=== PATIENT | male | born 1970 | race Two or more races ===

== ENCOUNTER 2020-04-06 21:51 | Emergency (ER) | payer OTHER ==
[~2020-04-06] VITALS: Ht 188 cm; Wt 113.4 kg
[~2020-04-06 21:51] MED LIST: ASPI81TA31 PO
[2020-04-06] MEDS ORDERED: CEFTRIAXONE 1 G VIAL IM ONE (22:15)
[2020-04-06] MEDS ORDERED: CEFTRIAXONE 1 G VIAL ONE (22:16)
[2020-04-06] MEDS ORDERED: SULF1TAB48 PO (22:23)
== END 2020-04-06 22:43 | disposition home or self-care (01) ==
LOC: ER 21:55
DX: I87.2 Venous insufficiency (chronic) (peripheral) (principal); L97.819 Non-pressure chronic ulcer of other part of right lower leg with unspecified severity; Z59.0 Homelessness; J44.9 Chronic obstructive pulmonary disease, unspecified; Z86.73 Personal history of transient ischemic attack (TIA), and cerebral infarction without residual deficits; I25.2 Old myocardial infarction; Z95.5 Presence of coronary angioplasty implant and graft; I50.9 Heart failure, unspecified
CPT/HCPCS: 96372; 99283; J0696; A4663

== ENCOUNTER 2020-07-27 21:18 | Emergency (ER) | payer OTHER ==
[~2020-07-27] VITALS: Ht 188 cm; Wt 112.0 kg
[~2020-07-27 21:18] MED LIST changes: +SULF1TAB48 PO
--- NOTE | 2020-07-27 22:10 | NUR ---
DR Leon into eval patient.
[2020-07-27] MEDS ORDERED: SULF1TAB48 PO (22:28)
[2020-07-27] MEDS ORDERED: SULFAMETH/TRIMETH 800/160 MG TABLET PO ONE (22:30)
[2020-07-27] MEDS ORDERED: SULFAMETH/TRIMETH 800/160 MG TABLET ONE (22:38)
--- NOTE | 2020-07-27 22:38 | NUR ---
Patient discharged to home in stable condition. Written and verbal after care instructions given. Patient verbalizes understanding of instructions. Stressed follow up or return to ER for worsening s/s.
[2020-07-27 22:41] VITALS: BP 148/95
== END 2020-07-27 22:41 | disposition home or self-care (01) ==
LOC: ER 21:20
DX: L97.811 Non-pressure chronic ulcer of other part of right lower leg limited to breakdown of skin (principal); I87.2 Venous insufficiency (chronic) (peripheral); I25.2 Old myocardial infarction; Z86.73 Personal history of transient ischemic attack (TIA), and cerebral infarction without residual deficits; J44.9 Chronic obstructive pulmonary disease, unspecified; Z95.5 Presence of coronary angioplasty implant and graft; Z59.0 Homelessness; Z79.82 Long term (current) use of aspirin; M21.951 Unspecified acquired deformity of right thigh
CPT/HCPCS: A4663

== ENCOUNTER 2020-09-25 20:35 | Inpatient (IN) | payer MEDICAID, OTHER ==
[~2020-09-25] VITALS: Ht 188 cm; Wt 104.4 kg
--- NOTE | 2020-09-25 20:45 | NUR ---
PT AMBULATED TO ER W/ C/O RIGHT ANKLE WOUND THAT HASN'T BEEN BETTING BETTER PL:11/16. A/O X3, NO SOB OR LABORED BREATHING, AFEBRILE.
--- NOTE | 2020-09-25 21:00 | NUR ---
DR. GARCIA AT BEDSIDE, MSE IN PROGRESS.
--- NOTE | 2020-09-25 21:38 | NUR ---
XRAY AT BEDSIDE.
[2020-09-25] MEDS ORDERED: PIPERACILLIN SODIUM/TAZOBACTAM 3.375 G in IV DEXTROSE 5% 50 ML IV ONE (22:45)
[2020-09-25] MEDS ORDERED: VANCOMYCIN IV 1,000 MG in IV DEXTROSE 5% 250 ML IV ONE (22:45)
[2020-09-25 23:01] LABS: MEAN CORPUSCULAR HEMOGLOBIN 28.7 uug (23.8-33.4); MEAN CORPUSCULAR VOLUME 85.2 fL (73.0-96.2); PLATELET COUNT (AUTO) 250 K/uL (152-348)
[2020-09-25 23:03] LABS: CREATININE 1.5 mg/dL (0.6-1.3); POTASSIUM 3.6 mmol/L (3.5-5.1)
[2020-09-25] MEDS ORDERED: VANCOMYCIN IV 200 ML ONE (23:07)
[2020-09-25] MEDS ORDERED: PIPERACILLIN/TAZOBACTAM/D5W 50 ML IV ONE (23:07)
[2020-09-25 23:09] LABS: BILIRUBIN,DIRECT 0.1 mg/dL (0.0-0.2); BILIRUBIN,TOTAL 0.2 mg/dL (0.2-1.0); TOTAL PROTEIN, SERUM 7.6 g/dL (6.4-8.2)
--- NOTE | 2020-09-25 23:21 | NUR ---
EPIC called, pending call back from CLEMENCIA Thibodeaux.
[2020-09-26] MEDS ORDERED: LABETALOL HCL 100 MG/20 ML VIAL IV PRN
[2020-09-26] MEDS ORDERED: hydrALAZINE HCL 20 MG/1 ML VIAL IV PRN
[2020-09-26] MEDS ORDERED: MAGNESIUM HYDROXIDE 30 ML LIQUID UDC PO PRN
[2020-09-26] MEDS ORDERED: ONDANSETRON 4 MG/2 ML VIAL IV PRN
[2020-09-26] MEDS ORDERED: HYDROCODONE/APAP 5-325MG TABLET PO PRN
--- NOTE | 2020-09-26 00:31 | NUR ---
GAVE REPORT TO ANNALISA PALMA.
--- NOTE | 2020-09-26 01:15 | NUR ---
Pt. admitted to [facility] , under care of DR. IGLESIAS DX: RIGHT LOWER LEG OSTEOMYLITIS Belongs List completed
[2020-09-26 02:26] VITALS: BP 125/82
[2020-09-26] MEDS ORDERED: CEFEPIME HCL 1 G VIAL ONE (02:55)
[2020-09-26 04:00] VITALS: BP 130/73
[2020-09-26] MEDS ORDERED: CEFEPIME HCL 1 G in IV DEXTROSE 5% 50 ML IV SCH (06:00)
[2020-09-26] MEDS ORDERED: CEFEPIME HCL 1 G in IV DEXTROSE 5% 50 ML IV ONE (06:00)
--- NOTE | 2020-09-26 07:08 | NUR ---
Pt arrived to unit from ER in stable condition brain wheelchair as a Med Surg patient. C/o pain in right lower leg, given [place] which helped patient's pain subside. Denies SOB at this time. Patient is alert and able to make needs known. IV site intact. No other issues or concerns at this time, will endorse to day shift.
--- NOTE | 2020-09-26 07:30 | NUR ---
Patient received in bed with eyes closed, but easily arousable. Right LE dressing C/D/I. Patient on RA with no SOB or difficulties breathing. No acute distress noted at this time. Left AC IV is patent with no redness or swelling noted at this time. No c/o pain or discomforts. Call light within easy reach. Will continue to monitor.
[2020-09-26] MEDS ORDERED: VANCOMYCIN IV 1,000 MG in IV DEXTROSE 5% 250 ML IV SCH (09:00)
--- NOTE | 2020-09-26 09:01 | NUR ---
WOUND CARE CONSULT: PT PRESENTS WITH RT ANKLE WOUND, PRESENT ON ADMISSION. RECOMMEND DPM CONSULT. DR FLYNN NOTIFIED. IN AGREEMENT WITH PLAN OF CARE. Addendum: 09/26/20 at 0902 by ANUM SAUNDERS RN Amended: Links added.
[2020-09-26] MEDS: ASPIRIN 81 MG TAB.CHEW PO SCH (09:16)
[2020-09-26] MEDS: HEPARIN SODIUM,PORCINE 5,000 UNITS/ML VIAL SQ SCH ×2 (09:16→21:16)
[2020-09-26] MEDS: VANCOMYCIN IV 1,500 MG in IV DEXTROSE 5% 500 ML IV SCH ×2 (09:16→21:17)
--- NOTE | 2020-09-26 11:00 | NUR ---
Patient c/o pain at IV site. Failed multiple attempts to start new IV site and new order for midline at this time.
[2020-09-26 11:07] VITALS: BP 118/72
--- NOTE | 2020-09-26 14:15 | NUR ---
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
[2020-09-26 15:54] VITALS: BP 101/47
[2020-09-26 20:22] VITALS: BP 115/67
--- NOTE | 2020-09-26 20:39 | NUR ---
PICC liner here for Mid Line insertion.
--- NOTE | 2020-09-26 20:57 | NUR ---
Mid Line insertion dine. Patient tolerated procedure well.
[2020-09-26] MEDS: MORPHINE SULFATE 2 MG/1 ML DISP.SYRIN IV PRN (21:20)
[2020-09-27] MEDS: CEFEPIME HCL 2 G in IV DEXTROSE 5% 100 ML IV SCH ×4 (01:51→13:40)
[2020-09-27 04:46] VITALS: BP 140/84
[2020-09-27 06:59] LABS: BILIRUBIN,TOTAL 0.4 mg/dL (0.2-1.0); CREATININE 1.1 mg/dL (0.6-1.3); MAGNESIUM 2.1 mg/dL (1.8-2.4); PHOSPHOROUS 2.5 mg/dL (2.5-4.9); POTASSIUM 4.2 mmol/L (3.5-5.1); TOTAL PROTEIN, SERUM 7.4 g/dL (6.4-8.2)
[2020-09-27 07:03] LABS: HEMATOCRIT 42.8 % (36.7-47.1); MEAN CORPUSCULAR HEMOGLOBIN 28.4 uug (23.8-33.4); MEAN CORPUSCULAR VOLUME 85.9 fL (73.0-96.2); PLATELET COUNT (AUTO) 267 K/uL (152-348)
--- NOTE | 2020-09-27 07:30 | NUR ---
Patient received in bed with eyes closed, but easily arousable. Right LE dressing C/D/I. Patient on RA with no SOB or difficulties breathing. No acute distress noted at this time. Right AC midline is patent with no redness or swelling noted at this time. No c/o pain or discomforts. Call light within easy reach. Will continue to monitor.
--- NOTE | 2020-09-27 08:30 | NUR ---
Patient reminded that we need a urine sample. Specimen cup at bedside. Patient expresses understanding.
[2020-09-27] MEDS: HEPARIN SODIUM,PORCINE 5,000 UNITS/ML VIAL SQ SCH ×2 (08:32→20:41)
[2020-09-27] MEDS: ASPIRIN 81 MG TAB.CHEW PO SCH (08:33)
[2020-09-27] MEDS: VANCOMYCIN IV 1,500 MG in IV DEXTROSE 5% 500 ML IV SCH ×2 (09:29→20:44)
--- NOTE | 2020-09-27 10:37 | NUR ---
Patient transferred to telemetry from M/S. Patient requests to have ECHO done tomorrow because he "didn't have good sleep" last night. Diet changed to cardiac. Dr. Ruffin and Dr. Corbett aware.
[2020-09-27 12:00] VITALS: BP 166/91
[2020-09-27] MEDS: METOPROLOL SUCCINATE XL 25 MG TAB.SR.24H PO SCH (12:05)
[2020-09-27 16:00] VITALS: BP 121/69
--- NOTE | 2020-09-27 16:00 | NUR ---
Patient again reminded of needing urine sample. Patient expresses understanding.
--- NOTE | 2020-09-27 19:30 | NUR ---
Received pt in bed, awake and verbally responsive, able to make needs known. No signs of acute distress. IV access intact and patent. Reminded pt for a urine sample. Safety measures initiated, call light within reach.
[2020-09-27] MEDS: MORPHINE SULFATE 2 MG/1 ML DISP.SYRIN IV PRN (19:46)
[2020-09-27 20:00] VITALS: BP 133/84
[2020-09-27] MEDS: ATORVASTATIN 40 MG TABLET PO SCH (20:36)
[2020-09-27] MEDS: ACETAMINOPHEN 325 MG TABLET PO PRN (20:36)
[2020-09-28] VITALS: BP 120/67
[2020-09-28] MEDS: CEFEPIME HCL 2 G in IV DEXTROSE 5% 100 ML IV SCH ×2 (01:48→13:20)
[2020-09-28 04:00] VITALS: BP 130/71
--- NOTE | 2020-09-28 07:00 | NUR ---
Slept through the night, no signs of acute distress. Tolerated medications well. NSR on tele. No significant change in condition noted. Safety measures maintained at all times. All needs attended to and met. Urine sample sent to lab.
[2020-09-28 07:23] LABS: *BILIRUBIN,URIN NEGATIVE (NEGATIVE); *BLOOD, URINE 2+ (NEGATIVE); *CLARITY,URINE CLOUDY (CLEAR); *COLOR,URINE YELLOW (YELLOW); *KETONES,URINE NEGATIVE (NEGATIVE); *UROBILINOGEN,URINE 0.2 E.U./dl (NORMAL); LEUKOCYTE ESTERASE ,URINE 2+ (NEGATIVE); NITRITE, URINE NEGATIVE (NEGATIVE); UGLUCOSE NEGATIVE (NEGATIVE)
[2020-09-28 07:48] LABS: RBC,URINE 50-80 /HPF (0-3); WBC,URINE 80-100 /HPF (0-3)
[2020-09-28 07:49] LABS: BACTERIA,URINE NONE SEEN /HPF (NONE SEEN)
[2020-09-28 07:50] LABS: SQUAMOUS EPITHELIAL CELL,UR NONE SEEN /HPF (NONE SEEN)
[2020-09-28] MEDS: ASPIRIN 81 MG TAB.CHEW PO SCH (08:31)
[2020-09-28] MEDS: HEPARIN SODIUM,PORCINE 5,000 UNITS/ML VIAL SQ SCH ×2 (08:34→20:25)
[2020-09-28] MEDS: METOPROLOL SUCCINATE XL 25 MG TAB.SR.24H PO SCH (08:38)
[2020-09-28] MEDS: MORPHINE SULFATE 2 MG/1 ML DISP.SYRIN IV PRN ×2 (08:41→21:37)
[2020-09-28] MEDS: VANCOMYCIN IV 1,500 MG in IV DEXTROSE 5% 500 ML IV SCH (10:37)
[2020-09-28 12:00] VITALS: BP 114/58
[2020-09-28 16:00] VITALS: BP 123/79
--- NOTE | 2020-09-28 18:46 | NUR ---
Received patient in bed, alert and oriented x 4, patient in room air saturating at 96% call light placed within reach, all needs met promptly. Left AC IV site intact. All due meds given per MD order. Seen by Dr. Corbett. Transferred patient from telemetry to [facility]. Instructed patient to give urine sample when ready. Right ankle dressing changed.
--- NOTE | 2020-09-28 19:30 | NUR ---
Received pt in bed, awake, A&Ox3 and verbally responsive. No signs of respiratory distress noted. IV access intact and patent. R ankle with dressing, no signs of soilage. Reminded pt to collect another urine sample as he is ambulatory to the bathroom. Safety measures initiated, call light within reach.
[2020-09-28 20:15] VITALS: BP 120/81
[2020-09-28] MEDS: ACETAMINOPHEN 325 MG TABLET PO PRN (20:21)
[2020-09-28] MEDS: ATORVASTATIN 40 MG TABLET PO SCH (20:22)
[2020-09-29] MEDS: VANCOMYCIN IV 1,500 MG in IV DEXTROSE 5% 500 ML IV SCH (00:01)
[2020-09-29] MEDS: CEFEPIME HCL 2 G in IV DEXTROSE 5% 100 ML IV SCH (02:29)
[2020-09-29 04:15] VITALS: BP 123/52
--- NOTE | 2020-09-29 06:33 | NUR ---
Slept through the night, no signs of distress. Pain medication administered as needed, tolerated medications well. No significant change in condition noted. Safety measures maintained at all times. all needs attended to and met.
[2020-09-29 08:51] LABS: *AMPHETAMINE, URINE POSITIVE (NEGATIVE); *CANNABINOID, URINE NEGATIVE (NEGATIVE); *COCCAINE, URINE NEGATIVE (NEGATIVE); *OPIATE, URINE POSITIVE (NEGATIVE); *PHENCYCLIDINE SCREEN,URINE NEGATIVE (NEGATIVE)
[2020-09-29] MEDS ORDERED: ENSURE ENLIVE (VAN) 240 ML LIQUID PO SCH (09:00)
[2020-09-29] MEDS: ASPIRIN 81 MG TAB.CHEW PO SCH (09:06)
[2020-09-29] MEDS: HEPARIN SODIUM,PORCINE 5,000 UNITS/ML VIAL SQ SCH (09:07)
[2020-09-29] MEDS: METOPROLOL SUCCINATE XL 25 MG TAB.SR.24H PO SCH (09:07)
[2020-09-29] MEDS ORDERED: NALOXONE HCL 0.4 MG/ML AMPUL IV PRN (09:45)
[2020-09-29] MEDS ORDERED: OXYCODONE HCL 10 MG TAB.SR.12H PO SCH (09:45)
--- NOTE | 2020-09-29 11:27 | NUR ---
PATIENT SEEN AND EXAMINED BY DR ALLEN ROBERTS CHAPEL PROVIDER WITH NEW ORDERS AND NOTED.
[2020-09-29 11:29] VITALS: BP 113/61
--- NOTE | 2020-09-29 12:30 | NUR ---
PATIENT STATED WANTS TO BE DISCHARGED BECAUSE UNABLE TO REACH HIS ZACHERY ABOUT 3 DAYS STATED HER NAME IS MARTHA NASH [phone] THIS PERSON IS NOT ON HIS CONTACT LIST I ALSO TRIED TO CALL THIS PERSON 3 TIMES AND IT WENT INTO VOICE MAIL ENCOURAGED PATIENT TO CALL HIS JD EDWARDS OR THE POLICE TO GO AND CHECK UP ON HER BUT HE INSISTED THAT HE MUST LEAVE CALLED AND NOTIFIED DR ALLEN AND HE STATED PATIENT CAN GO AGAINST [facility] BECAUSE HE IS NOT MEDICALLY CLEAR TO BE DISCHARGED SO PATIENT STATED WILL SIGN AGAINST [facility] BECAUSE HE MUST LEAVE
--- NOTE | 2020-09-29 12:55 | NUR ---
PATIENT AT THE NURSES STATED ANGRY SHOUTING THAT HE MUST LEAVE TOLD HIM TO GIVE ME A CHANCE TO TAKE THE PICTURES OF HIS RIGHT ANKLE REMOVE HIS MIDLINE AND PREPARE HIS PAPERS.STATED UNABLE TO WAIT.
--- NOTE | 2020-09-29 13:00 | NUR ---
STACY FRIEDMAN REMOVED REUSED PICTURES AND OTHER PAPER WORK BUT WAS ABLE TO GIVE HIM HIS MONEY FROM THE [facility]AFE AND ESCORTED HIM DOWN STAIRS STATED THAT HIS CAR IS IN THE PARKING LOT.DRESSING ON HIS RIGHT LEG IS INTACT AT THIS TIME
== END 2020-09-29 13:00 | disposition left against medical advice (07) | DRG 349 ==
LOC: ER 20:36 → MEDSURG3 23:55 → TELE3 09-27 10:28 → MEDSURG3 09-28 15:15
PROVIDERS: ADMIT Internal Medicine; ATTEND Internal Medicine
PROC: B546ZZA Ultrasonography of Right Subclavian Vein, Guidance (ICD-10-PCS; principal; 2020-09-26)
PROC: 05H533Z Insertion of Infusion Device into Right Subclavian Vein, Percutaneous Approach (ICD-10-PCS; principal; 2020-09-26)
DX: T84.59XA Infection and inflammatory reaction due to other internal joint prosthesis, initial encounter (principal); N17.0 Acute kidney failure with tubular necrosis; I21.A1 Myocardial infarction type 2; A41.9 Sepsis, unspecified organism; I13.0 Hypertensive heart and chronic kidney disease with heart failure and stage 1 through stage 4 chronic kidney disease, or unspecified chronic kidney disease; I50.9 Heart failure, unspecified; L02.415 Cutaneous abscess of right lower limb; I87.311 Chronic venous hypertension (idiopathic) with ulcer of right lower extremity; L97.919 Non-pressure chronic ulcer of unspecified part of right lower leg with unspecified severity; L03.115 Cellulitis of right lower limb; J44.9 Chronic obstructive pulmonary disease, unspecified; I25.5 Ischemic cardiomyopathy; L97.519 Non-pressure chronic ulcer of other part of right foot with unspecified severity; L97.319 Non-pressure chronic ulcer of right ankle with unspecified severity; N18.9 Chronic kidney disease, unspecified; F17.210 Nicotine dependence, cigarettes, uncomplicated; Z86.73 Personal history of transient ischemic attack (TIA), and cerebral infarction without residual deficits; I25.10 Atherosclerotic heart disease of native coronary artery without angina pectoris; Z79.82 Long term (current) use of aspirin; Z95.5 Presence of coronary angioplasty implant and graft; L97.818 Non-pressure chronic ulcer of other part of right lower leg with other specified severity; E78.5 Hyperlipidemia, unspecified; F15.10 Other stimulant abuse, uncomplicated; M86.8X7 Other osteomyelitis, ankle and foot; I25.2 Old myocardial infarction; Y92.89 Other specified places as the place of occurrence of the external cause; T84.84XA Pain due to internal orthopedic prosthetic devices, implants and grafts, initial encounter; Y83.1 Surgical operation with implant of artificial internal device as the cause of abnormal reaction of the patient, or of later complication, without mention of misadventure at the time of the procedure; Z20.822 Contact with and (suspected) exposure to COVID-19
CPT/HCPCS: 36415; 70030-TC; 71045; 73590; 73620; 73721; 83605; 83735; 84100; 85025; 85651; 85730; 86140; 87040; 87070; 87077; 87086; 93005; A4663; G0378; J0692; J1644; J2270; J2543; J3370; J7040; J7060

== ENCOUNTER 2020-10-31 20:03 | Emergency (ER) | payer MEDICAID ==
--- NOTE | 2020-10-31 21:56 | NUR ---
Pt not in waiting room.
== END 2020-10-31 21:57 | disposition left against medical advice (07) ==
LOC: ER 20:03
DX: Z53.21 Procedure and treatment not carried out due to patient leaving prior to being seen by health care provider (principal)

== ENCOUNTER 2020-11-02 17:42 | Inpatient (IN) | payer MEDICAID ==
[~2020-11-02] VITALS: Ht 188 cm; Wt 103.9 kg
[2020-11-02] MEDS ORDERED: CEFTRIAXONE 1 G in IV DEXTROSE 5% 50 ML IV ONE (18:00)
[2020-11-02] MEDS ORDERED: AZITHROMYCIN IV 500 MG in IV DEXTROSE 5% 250 ML IV ONE (18:00)
--- NOTE | 2020-11-02 18:06 | NUR ---
MD at bedside for assessment, 4 liters nasal cannula applied to patient, saturating 90% on room air, saturating 96% with supplemental O2
[2020-11-02] MEDS ORDERED: CEFTRIAXONE /D5W 50ML IVPB **ER PYXIS IV ONE (18:23)
[2020-11-02] MEDS ORDERED: AZITHROMYCIN 500MG/ D5W 250ML IVPB **ER PYXIS ONLY IV ONE (18:23)
[2020-11-02 18:30] LABS: ABG BASE EXCESS 0.1 mmol/L; ABG HCO3 22.5 mmol/L; ABG PH 7.479 (7.350-7.450); ABG PO2 91.5 mmHg (75.0-100.0); ABG SITE RIGHT RADIAL; ABG TOTAL HEMOGLOBIN 15.7 G/dL (13.5-18.0); COHb 0.6 % (0.5-1.5); MetHb 0.2 % (0.0-1.5); O2Hb 96.8 % (94.0-97.0); VENT MODE Nasal Cannula
[2020-11-02] MEDS ORDERED: IPRATROPIUM BROMIDE 12.9 GM INHALER INH ONE (18:30)
[2020-11-02] MEDS ORDERED: ALBUTEROL SULFATE 8 GM HFA.AER.AD IH ONE ×2 (18:30→18:45)
[2020-11-02 19:06] LABS: HEMATOCRIT 46.9 % (36.7-47.1); MEAN CORPUSCULAR HEMOGLOBIN 28.7 uug (23.8-33.4); MEAN CORPUSCULAR VOLUME 85.3 fL (73.0-96.2); PLATELET COUNT (AUTO) 153 K/uL (152-348)
[2020-11-02 19:12] LABS: CREATININE 1.8 mg/dL (0.6-1.3); POTASSIUM 4.7 mmol/L (3.5-5.1)
[2020-11-02 19:29] LABS: BILIRUBIN,TOTAL 0.3 mg/dL (0.2-1.0); TOTAL PROTEIN, SERUM 8.4 g/dL (6.4-8.2)
--- NOTE | 2020-11-02 19:30 | NUR ---
Recieved report from ANNALISA Ballesteros. Pt. is resting in bed, tolerating 4L nc. Spo2>97%.
[2020-11-02] MEDS ORDERED: ACETAMINOPHEN ES 500 MG TABLET ONE (20:41)
[2020-11-02] MEDS ORDERED: ACETAMINOPHEN ES 500 MG TABLET PO STA (21:00)
--- NOTE | 2020-11-02 21:10 | NUR ---
Gave pt blanket, juice, sandwich. Pt. resting. NAD. Will continue to monitor.
--- NOTE | 2020-11-02 21:12 | NUR ---
[facility] paged for pt. admission.
[2020-11-02] MEDS ORDERED: DEXAMETHASONE SOD PHOSPHATE 4 MG INJ IV ONE (21:15)
--- NOTE | 2020-11-02 21:25 | NUR ---
Dr. Srivastava on panel call with Oswaldo Ferrari CHAIR CAR DRIVER. Patient accepted for admission to [facility], diagnosis: covid+ pneumonia.
[2020-11-02] MEDS ORDERED: DEXAMETHASONE SOD PHOSPHATE 4 MG INJ ONE (21:27)
[2020-11-02] MEDS ORDERED: ENOXAPARIN SODIUM 100 MG/ML DISP.SYRIN SQ ONE ×2 (21:30→21:31)
--- NOTE | 2020-11-02 21:30 | NUR ---
Dr. Srivastava spoke w/ Oswaldo Ferrari. Pt. will be admitted to tele. Pt. to go to room 320.
[2020-11-02] MEDS ORDERED: ENOXAPARIN SODIUM 30 MG/0.3 ML DISP.SYRIN ONE (21:31)
--- NOTE | 2020-11-02 21:49 | NUR ---
Gave report to ANNALISA Bennett.
[2020-11-02] MEDS ORDERED: ZOLPIDEM 5 MG TABLET PO PRN (22:15)
[2020-11-02] MEDS ORDERED: ALBUTEROL SULFATE 2.5 MG/ 0.5 ML NEBU NEB PRN (22:15)
[2020-11-02] MEDS ORDERED: HYDROCODONE/APAP 5-325MG TABLET PO PRN (22:15)
[2020-11-02] MEDS ORDERED: IPRATROPIUM BROMIDE 0.5 MG/2.5 ML NEBU NEB PRN (22:15)
[2020-11-02] MEDS ORDERED: ACETAMINOPHEN 325 MG TABLET PO PRN (22:15)
[2020-11-02 22:40] VITALS: BP 105/69
--- NOTE | 2020-11-02 23:15 | NUR ---
Pt stated that he left his phone in his car and requested this nurse to retrieve his phone for him. This nurse was accompanied by Security to patient's car that was located in hospital parking structure. Phone was given to patient.
[2020-11-03 00:41] VITALS: BP 106/58
[2020-11-03 04:12] VITALS: BP 117/67
--- NOTE | 2020-11-03 05:37 | NUR ---
Pt admitted to Telemetry at 2230H. Denies chest pain. Titrated to 3L/min NC, tolerating well satting at 99%. Pt is able to make needs known. All belongings accounted for. IV site is intact. SR with PVCs on monitor. Safety and comfort provided. No other issues or concerns at this time, will endorse to day shift.
[2020-11-03] MEDS: PANTOPRAZOLE SODIUM 40 MG TABLET.DR PO SCH (06:14)
[2020-11-03 06:30] LABS: HEMATOCRIT 46.6 % (36.7-47.1); MEAN CORPUSCULAR HEMOGLOBIN 29.2 uug (23.8-33.4); PLATELET COUNT (AUTO) 151 K/uL (152-348)
[2020-11-03 07:01] LABS: CREATININE 1.7 mg/dL (0.6-1.3); MAGNESIUM 2.5 mg/dL (1.8-2.4); POTASSIUM 4.9 mmol/L (3.5-5.1)
[2020-11-03] MEDS ORDERED: ENOXAPARIN SODIUM 100 MG/ML DISP.SYRIN SQ SCH (09:00)
[2020-11-03] MEDS: NICOTINE 14 MG/24HR PATCH TD SCH ×2 (09:00→09:39)
[2020-11-03] MEDS ORDERED: ENOXAPARIN SODIUM 120 MG/0.8 ML SYRINGE SQ SCH (09:00)
[2020-11-03] MEDS ORDERED: CEFTRIAXONE 1 G in IV DEXTROSE 5% 50 ML IV SCH (09:00)
[2020-11-03] MEDS: ASPIRIN 81 MG TAB.CHEW PO SCH (09:39)
[2020-11-03] MEDS: DEXAMETHASONE SOD PHOSPHATE 4 MG INJ IV SCH (09:40)
[2020-11-03 12:00] VITALS: BP 112/78
[2020-11-03] MEDS ORDERED: REMDESIVIR (CHARGED) 200 MG in IV NORMAL SALINE 250 ML IV ONE ×2 (12:00→13:00)
--- NOTE | 2020-11-03 12:43 | NUR ---
Pt is a/o x 4, sinus rhythm. Pt is currently on room air saturating 92%. pt is ambulatory, uses urinal at bedside. Pt has discoloration and dryness of right lower leg/ankle. took a photo and placed it in patient's chart. Pt mentioned he had to have surgery on the right leg but had to leave home, he stated he fell off of a pole and cut his leg then it formed into an infection.
--- NOTE | 2020-11-03 12:45 | NUR ---
pt 02 desat to 86% r/a with rest.
[2020-11-03] MEDS ORDERED: GUAIFENESIN/CODEINE 5 ML LIQUID UDC PO PRN (14:00)
[2020-11-03 16:00] VITALS: BP 108/71
[2020-11-03 16:11] LABS: LYMPHOCYTES % (MANUAL) 28 % (20-40); MONOCYTES % (MANUAL) 2 % (2-10); NEUTROPHILS % (MANUAL) 70 % (42-75)
[2020-11-03] MEDS: AZITHROMYCIN IV 500 MG in IV DEXTROSE 5% 250 ML IV SCH (17:29)
--- NOTE | 2020-11-03 19:30 | NUR ---
PATIENT ALERT ORIENTED,NO CHEST PAIN, PATIENT COMPLAIN OF SOB ON EXERTION, GOING TO THE TOILET, PATIENT WAS GIVEN 2 LITERS OXYGEN VIA NC FOR ASSIST ONLY, SAT 96-97% AT 2 LITERS, INSTRUCTED PATIENT TO USE URINAL AT THIS TIME TO ABOUT SOB, AND INSTRUCTED TO USE ALBUTEROL HHN FOR SOB NEEDED. TELE MONITOR SINUS RHYTHM WITH OCCASION PVC.CONT TO MONITOR.
[2020-11-03] MEDS: IV NS 1000 ML 1,000 ML IV PRN (19:55)
[2020-11-03 20:15] VITALS: BP 105/65
[2020-11-03] MEDS: CEFTRIAXONE 2 G in IV DEXTROSE 5% 100 ML IV SCH (20:34)
[2020-11-03] MEDS: ATORVASTATIN 40 MG TABLET PO SCH (20:34)
[2020-11-03 21:58] LABS: *BILIRUBIN,URIN NEGATIVE (NEGATIVE); *BLOOD, URINE 3+ (NEGATIVE); *CLARITY,URINE SLIGHTLY CLOUDY (CLEAR); *COLOR,URINE YELLOW (YELLOW); *KETONES,URINE NEGATIVE (NEGATIVE); *UROBILINOGEN,URINE 0.2 E.U./dl (NORMAL); LEUKOCYTE ESTERASE ,URINE 3+ (NEGATIVE); NITRITE, URINE NEGATIVE (NEGATIVE); PH,URINE 5.5 (5.0-8.0); UGLUCOSE NEGATIVE (NEGATIVE)
[2020-11-03 22:14] LABS: BACTERIA,URINE MODERATE /HPF (NONE SEEN); RBC,URINE 50-80 /HPF (0-3); SQUAMOUS EPITHELIAL CELL,UR FEW /HPF (NONE SEEN); WBC,URINE 20-50 /HPF (0-3)
[2020-11-04] VITALS: BP 102/63
--- NOTE | 2020-11-04 00:45 | NUR ---
PATIENT AWAKE WITH OCCASIONAL NON PRODUCTIVE COUGH, CONT TO MONITOR.
[2020-11-04 04:00] VITALS: BP 96/51
--- NOTE | 2020-11-04 05:50 | NUR ---
PATIENT ASLEEP BUT AROUSABLE NO SOB NO CHEST PAIN, ON 2LPM NC OXYGEN SAT 99%. PATIENT NON PRODUCTIVE COUGH, DESAT WHEN DURING TRIP TO TOILET AND WHEN HE'S COUGHING. PROVIDED URINAL FOR BLADDER ELIMINATIONS, TELE MONITOR SINUS RHYTHM, CONT TO MONITOR.
[2020-11-04] MEDS: PANTOPRAZOLE SODIUM 40 MG TABLET.DR PO SCH (06:21)
[2020-11-04 06:47] LABS: HEMATOCRIT 46.1 % (36.7-47.1); MEAN CORPUSCULAR HEMOGLOBIN 28.9 uug (23.8-33.4); MEAN CORPUSCULAR VOLUME 85.7 fL (73.0-96.2); PLATELET COUNT (AUTO) 180 K/uL (152-348)
[2020-11-04 07:21] LABS: ALANINE AMINOTRANSFERASE 31 U/L (16-63); ALKALINE PHOSPHATASE 63 U/L (50-136); ASPARTATE AMINOTRANSFERASE 41 U/L (15-37); BILIRUBIN,TOTAL 0.2 mg/dL (0.2-1.0); CARBON DIOXIDE 28 mmol/L (21-32); CHLORIDE 105 mmol/L (98-107); CREATININE 1.3 mg/dL (0.6-1.3); GLUCOSE 136 mg/dL (74-106); MAGNESIUM 2.2 mg/dL (1.8-2.4); POTASSIUM 4.3 mmol/L (3.5-5.1); TOTAL PROTEIN, SERUM 7.8 g/dL (6.4-8.2); UREA NITROGEN, BLOOD 24 mg/dL (7-18)
[2020-11-04 07:46] LABS: BILIRUBIN,DIRECT < 0.1 mg/dL (0.0-0.2)
[2020-11-04] MEDS: NICOTINE 14 MG/24HR PATCH TD SCH ×2 (08:57→09:00)
[2020-11-04] MEDS: DEXAMETHASONE SOD PHOSPHATE 4 MG INJ IV SCH (08:57)
[2020-11-04] MEDS: ASPIRIN 81 MG TAB.CHEW PO SCH (08:57)
[2020-11-04] MEDS ORDERED: ENOXAPARIN SODIUM 100 MG/ML DISP.SYRIN SQ SCH (09:00)
--- NOTE | 2020-11-04 11:15 | NUR ---
WOUND CARE CONSULT: REVIEWED CHART, NURSING DOCUMENTATION AND PHOTO WHICH INDICATES ANKLE SCARRING/DISCOLORATION, PRESENT ON ADMISSION. DEFER TO PMD FOR POSSIBLE ORTHO CONSULT. CURRENT PASCUAL SCORE IS 22.
[2020-11-04 11:59] VITALS: BP 101/66
[2020-11-04] MEDS: REMDESIVIR (CHARGED) 100 MG in IV NORMAL SALINE 100 ML IV SCH (12:18)
[2020-11-04 16:00] VITALS: BP 100/62
[2020-11-04] MEDS: AZITHROMYCIN IV 500 MG in IV DEXTROSE 5% 250 ML IV SCH (17:11)
[2020-11-04] MEDS: IV NS 1000 ML 1,000 ML IV PRN (17:26)
--- NOTE | 2020-11-04 19:30 | NUR ---
Received patient lying in bed. Asleep, arouse to verbal stimuli. AOx4. In no apparent distress. Denies any pain or SOB. On O2 at 2LPM via NC in place. O2 sat at 92%. NSR on tele at 69/min,. IV site on right AC intact and patent. IVF infusing. Needs assessed and attended to. COVID precaution observed. Safety measure initiated and call noonan within reached.
[2020-11-04] MEDS: CEFTRIAXONE 2 G in IV DEXTROSE 5% 100 ML IV SCH (20:34)
[2020-11-04] MEDS: ATORVASTATIN 40 MG TABLET PO SCH (20:35)
[2020-11-04 20:37] VITALS: BP 102/62
[2020-11-04] MEDS: ENOXAPARIN SODIUM 100 MG/ML DISP.SYRIN SQ SCH (21:27)
[2020-11-05 00:25] VITALS: BP 94/45
[2020-11-05] MEDS: PANTOPRAZOLE SODIUM 40 MG TABLET.DR PO SCH (06:11)
--- NOTE | 2020-11-05 06:21 | NUR ---
AAOx4. Patient refusing to have tele monitor fixed this morning. Refused AM medication and refused to have blood draw and picture taken on his right ankle and refused to have VS taken. Was getting mad and threatening to go AMA. Does not want to be bothered. Was able to calm patient down buit still refused any care. Stated "I just want to rest and get more sleep". No complain of pain or SOB. On O2 at 2LPM via NC in place. O2 sat at 92%. NSR on tele at 65/min. last reading. IV site on right AC intact and patent. No adverse reaction noted from IV antibiotics. Needs attended to and met. COVID precaution maintained. Safety measure maintained and call noonan within reached.
--- NOTE | 2020-11-05 06:35 | NUR ---
Patient allowed landscape foreman to draw blood at this time.
[2020-11-05 06:44] LABS: HEMATOCRIT 44.9 % (36.7-47.1); MEAN CORPUSCULAR VOLUME 85.4 fL (73.0-96.2); PLATELET COUNT (AUTO) 191 K/uL (152-348)
[2020-11-05 06:55] LABS: BILIRUBIN,DIRECT 0.1 mg/dL (0.0-0.2); BILIRUBIN,TOTAL 0.3 mg/dL (0.2-1.0); CREATININE 1.2 mg/dL (0.6-1.3); POTASSIUM 4.4 mmol/L (3.5-5.1); TOTAL PROTEIN, SERUM 7.3 g/dL (6.4-8.2)
--- NOTE | 2020-11-05 08:00 | NUR ---
awake alert and oriented on 2l/nc sat at 94%, denies of pain, has cough. explained plan fo care- verbalized understanding, safety measures maintained, call light within reach
[2020-11-05] MEDS: ASPIRIN 81 MG TAB.CHEW PO SCH (09:09)
[2020-11-05] MEDS: NICOTINE 14 MG/24HR PATCH TD SCH ×2 (09:10→09:15)
[2020-11-05] MEDS: DEXAMETHASONE SOD PHOSPHATE 4 MG INJ IV SCH (09:10)
[2020-11-05] MEDS: ENOXAPARIN SODIUM 100 MG/ML DISP.SYRIN SQ SCH (09:11)
[2020-11-05 12:00] VITALS: BP 94/56
[2020-11-05] MEDS: REMDESIVIR (CHARGED) 100 MG in IV NORMAL SALINE 100 ML IV SCH (13:32)
--- NOTE | 2020-11-05 14:30 | NUR ---
pt called, states "has dilemma ,girlfriend in the hospital and no one to take her home, no friend and has no money. He will pick her u", called [employer] BUILDING STONECUTTER- informed, will have to go AMA, tried to offer if he needs something for anxiety but states he doesn't. he wants to go AMA and return to ER later
--- NOTE | 2020-11-05 14:35 | NUR ---
AMA papers signed, tele removed saline lock removed- no swelling/redness noted on site.
--- NOTE | 2020-11-05 14:45 | NUR ---
left ambulatory, with n95 on, and incentive spirometry and all belongins.
[2020-11-05] MEDS ORDERED: AZITHROMYCIN 250 MG TABLET PO SCH (18:00)
[2020-11-06] MEDS ORDERED: ENOXAPARIN SODIUM 40 MG/0.4 ML DISP.SYRIN SQ SCH (09:00)
== END 2020-11-05 14:45 | disposition left against medical advice (07) | DRG 137 ==
LOC: ER 17:47 → TELE3 21:53
PROVIDERS: ADMIT Nurse Practitioner Family; ATTEND Hospitalist
PROC: XW033E5 Introduction of Remdesivir Anti-infective into Peripheral Vein, Percutaneous Approach, New Technology Group 5 (ICD-10-PCS; principal; 2020-11-03)
DX: U07.1 COVID-19 (principal); J96.01 Acute respiratory failure with hypoxia; N17.0 Acute kidney failure with tubular necrosis; J12.82 Pneumonia due to coronavirus disease 2019; I13.0 Hypertensive heart and chronic kidney disease with heart failure and stage 1 through stage 4 chronic kidney disease, or unspecified chronic kidney disease; I21.A1 Myocardial infarction type 2; E44.1 Mild protein-calorie malnutrition; I42.9 Cardiomyopathy, unspecified; E88.09 Other disorders of plasma-protein metabolism, not elsewhere classified; I50.9 Heart failure, unspecified; R65.10 Systemic inflammatory response syndrome (SIRS) of non-infectious origin without acute organ dysfunction; L03.115 Cellulitis of right lower limb; J44.0 Chronic obstructive pulmonary disease with (acute) lower respiratory infection; E78.5 Hyperlipidemia, unspecified; I25.10 Atherosclerotic heart disease of native coronary artery without angina pectoris; Z66 Do not resuscitate; Z91.14 Patient's other noncompliance with medication regimen; Z95.5 Presence of coronary angioplasty implant and graft; N18.9 Chronic kidney disease, unspecified; Z79.82 Long term (current) use of aspirin; I69.351 Hemiplegia and hemiparesis following cerebral infarction affecting right dominant side; F15.10 Other stimulant abuse, uncomplicated; I25.2 Old myocardial infarction; M86.671 Other chronic osteomyelitis, right ankle and foot; Z68.29 Body mass index [BMI] 29.0-29.9, adult
CPT/HCPCS: 36415; 36600; 70030-TC; 71045; 83605; 83615; 83735; 85025; 85610; 85730; 86140; 87040; 87086; 87400; 93005; A4663; A9150; G0378; J0456; J0696; J1100; J1650; J3490; J3535; J7030; J7040; J7050; J7060; U0003

== ENCOUNTER 2020-12-23 02:31 | Emergency (ER) | payer MEDICAID ==
[~2020-12-23] VITALS: Ht 175.3 cm; Wt 90.7 kg
[~2020-12-23 02:31] MED LIST changes: -SULF1TAB48 PO
--- NOTE | 2020-12-23 02:40 | NUR ---
PT AMBULATED TO ER WITH C/O RT FOOT SWELLING WITH DRAINAGE. A/O X4, NO SOB OR LABORED BREATHING, AFEBRILE.
--- NOTE | 2020-12-23 02:42 | NUR ---
DR. BRITO AT BEDSIDE, MSE IN PROGRESS.
[2020-12-23] MEDS ORDERED: HYDROCODONE/APAP 5-325MG TABLET PO ONE (02:45)
[2020-12-23] MEDS ORDERED: SULFAMETH/TRIMETH 800/160 MG TABLET PO ONE (02:45)
[2020-12-23] MEDS ORDERED: SULF1TAB48 PO (02:48)
[2020-12-23] MEDS ORDERED: HYDR-4209 PO (02:48)
[2020-12-23] MEDS ORDERED: HYDROCODONE/APAP 5-325MG TABLET ONE (02:57)
[2020-12-23] MEDS ORDERED: SULFAMETH/TRIMETH 800/160 MG TABLET ONE (02:57)
--- NOTE | 2020-12-23 03:03 | NUR ---
Patient discharged to home in stable condition. Written and verbal after care instructions given. Patient verbalizes understanding of instructions. Stressed follow up or return to ER for worsening s/s. Steady gait. LT ankle wound covered in clean dry dressing. .
[2020-12-23 03:04] VITALS: BP 140/70
== END 2020-12-23 03:05 | disposition home or self-care (01) ==
LOC: ER 02:36
DX: L97.311 Non-pressure chronic ulcer of right ankle limited to breakdown of skin (principal); Z91.19 Patient's noncompliance with other medical treatment and regimen; I25.2 Old myocardial infarction; I25.10 Atherosclerotic heart disease of native coronary artery without angina pectoris; Z86.73 Personal history of transient ischemic attack (TIA), and cerebral infarction without residual deficits; I87.2 Venous insufficiency (chronic) (peripheral); E78.5 Hyperlipidemia, unspecified; F15.10 Other stimulant abuse, uncomplicated; F17.200 Nicotine dependence, unspecified, uncomplicated; Z79.82 Long term (current) use of aspirin; R03.0 Elevated blood-pressure reading, without diagnosis of hypertension; Z95.5 Presence of coronary angioplasty implant and graft
CPT/HCPCS: A4663

== ENCOUNTER 2020-12-28 03:31 | Emergency (ER) | payer MEDICAID ==
[~2020-12-28] VITALS: Ht 188 cm; Wt 109.8 kg
[~2020-12-28 03:31] MED LIST changes: +HYDR-4209 PO; +SULF1TAB48 PO
[2020-12-28] MEDS ORDERED: LIDOCAINE HCL 2% 20 ML VIAL TP ONE (03:45)
[2020-12-28] MEDS ORDERED: SODIUM BICARBONATE 4.2 % (NEUT) 5 ML VIAL TP ONE (03:45)
--- NOTE | 2020-12-28 03:54 | NUR ---
Patient discharged to home in stable condition. Written and verbal after care instructions given. Patient verbalizes understanding of instructions. Stressed follow up or return to ER for worsening s/s. pt with steady gait, able to ambulate. pt states he will follow up at wound clinic.
[2020-12-28 03:57] VITALS: BP 150/80
== END 2020-12-28 03:58 | disposition home or self-care (01) ==
LOC: ER 03:34
DX: L97.319 Non-pressure chronic ulcer of right ankle with unspecified severity (principal); R60.0 Localized edema; I87.2 Venous insufficiency (chronic) (peripheral); E78.5 Hyperlipidemia, unspecified; I25.2 Old myocardial infarction; I42.7 Cardiomyopathy due to drug and external agent; T43.621S Poisoning by amphetamines, accidental (unintentional), sequela; Z86.73 Personal history of transient ischemic attack (TIA), and cerebral infarction without residual deficits; Z86.16 Personal history of COVID-19; J44.9 Chronic obstructive pulmonary disease, unspecified; Z83.3 Family history of diabetes mellitus; Z82.49 Family history of ischemic heart disease and other diseases of the circulatory system; Z72.0 Tobacco use; R03.0 Elevated blood-pressure reading, without diagnosis of hypertension
CPT/HCPCS: A4663

== ENCOUNTER 2021-05-04 00:51 | Emergency (ER) | payer MEDICAID, OTHER ==
[~2021-05-04] VITALS: Ht 177.8 cm; Wt 108.9 kg
--- NOTE | 2021-05-04 01:06 | NUR ---
pt came in with right foot wound. ambulated to room 4a.
[2021-05-04 01:22] LABS: HEMATOCRIT 42.7 % (36.7-47.1); MEAN CORPUSCULAR VOLUME 85.3 fL (73.0-96.2); PLATELET COUNT (AUTO) 290 K/uL (152-348)
[2021-05-04 01:29] LABS: CREATININE 1.5 mg/dL (0.6-1.3); POTASSIUM 3.7 mmol/L (3.5-5.1)
[2021-05-04] MEDS ORDERED: SULF1TAB48 PO (01:44)
[2021-05-04] MEDS ORDERED: CHOL100053 PO (01:49)
--- NOTE | 2021-05-04 01:51 | NUR ---
Patient discharged to home in stable condition. Written and verbal after care instructions given. Patient verbalizes understanding of instructions. Stressed follow up or return to ER for worsening s/s. pt ambulated without assistance, denied pain.
[2021-05-04 02:04] VITALS: BP 140/80
== END 2021-05-04 02:05 | disposition home or self-care (01) ==
LOC: ER 00:56
DX: T84.196A Other mechanical complication of internal fixation device of bone of right lower leg, initial encounter (principal); M19.071 Primary osteoarthritis, right ankle and foot; T84.84XA Pain due to internal orthopedic prosthetic devices, implants and grafts, initial encounter; F17.290 Nicotine dependence, other tobacco product, uncomplicated; Z83.3 Family history of diabetes mellitus; Z82.49 Family history of ischemic heart disease and other diseases of the circulatory system; I25.2 Old myocardial infarction; Z86.73 Personal history of transient ischemic attack (TIA), and cerebral infarction without residual deficits; E78.5 Hyperlipidemia, unspecified; I87.2 Venous insufficiency (chronic) (peripheral); I13.0 Hypertensive heart and chronic kidney disease with heart failure and stage 1 through stage 4 chronic kidney disease, or unspecified chronic kidney disease; N18.9 Chronic kidney disease, unspecified; I50.9 Heart failure, unspecified; J44.9 Chronic obstructive pulmonary disease, unspecified; Z79.899 Other long term (current) drug therapy; Z79.82 Long term (current) use of aspirin; L97.319 Non-pressure chronic ulcer of right ankle with unspecified severity
CPT/HCPCS: 36415; 73610; 83735; 85025; 85651; 87070; A4663

== ENCOUNTER 2021-11-02 16:51 | Emergency (ER) | payer OTHER ==
[~2021-11-02] VITALS: Ht 188 cm; Wt 119.7 kg
[~2021-11-02 16:51] MED LIST changes: +CHOL100053 PO
--- NOTE | 2021-11-02 18:56 | NUR ---
Patient is still in the ER waiting room, calm, NAD, pending available ER [email or web address] time.
--- NOTE | 2021-11-02 19:01 | NUR ---
ROBERTAR to charge master coordinator Adrian.
--- NOTE | 2021-11-02 19:15 | NUR ---
Patient was just called at this time to be placed in room due to 3 rescues arriving before 1904.
--- NOTE | 2021-11-02 20:10 | NUR ---
Patient was called to be placed in room but was not present in the waiting room or outside of ER.
== END 2021-11-02 20:10 | disposition left against medical advice (07) ==
LOC: ER 16:54
DX: Z53.21 Procedure and treatment not carried out due to patient leaving prior to being seen by health care provider (principal)

== ENCOUNTER 2022-02-15 03:10 | Emergency (ER) | payer OTHER ==
[~2022-02-15] VITALS: Ht 172.7 cm; Wt 93.0 kg
[2022-02-15] MEDS ORDERED: SILV50CR32 TP (03:29)
[2022-02-15] MEDS ORDERED: SULF1TAB48 PO (03:29)
[2022-02-15] MEDS ORDERED: SILVER SULFADIAZINE 1% CREAM 50 GM TP ONE ×2 (03:31→03:45)
--- NOTE | 2022-02-15 03:37 | NUR ---
Patient discharged to home in stable condition. Written and verbal after care instructions given. Patient verbalizes understanding of instructions. Stressed follow up or return to ER for worsening s/s. Patient is a/ox4, NAD noted. Patient is able to walk with steady gait
[2022-02-15 03:41] VITALS: BP 135/71
== END 2022-02-15 03:42 | disposition home or self-care (01) ==
LOC: ER 03:10
DX: L97.311 Non-pressure chronic ulcer of right ankle limited to breakdown of skin (principal); I87.2 Venous insufficiency (chronic) (peripheral); F17.290 Nicotine dependence, other tobacco product, uncomplicated; Z83.3 Family history of diabetes mellitus; Z82.49 Family history of ischemic heart disease and other diseases of the circulatory system; E78.5 Hyperlipidemia, unspecified; J44.9 Chronic obstructive pulmonary disease, unspecified; I25.2 Old myocardial infarction; Z86.73 Personal history of transient ischemic attack (TIA), and cerebral infarction without residual deficits; N18.9 Chronic kidney disease, unspecified
CPT/HCPCS: A4663

== ENCOUNTER 2022-04-26 03:30 | Emergency (ER) | payer OTHER ==
[~2022-04-26] VITALS: Ht 188 cm; Wt 107.5 kg
[~2022-04-26 03:30] MED LIST changes: +SILV50CR32 TP
[2022-04-26] MEDS ORDERED: HYDROCODONE/APAP 10-325 MG TABLET PO ONE (04:00)
[2022-04-26] MEDS ORDERED: CLINDAMYCIN HCL 150 MG CAPSULE PO ONE (04:00)
[2022-04-26] MEDS ORDERED: HYDROCODONE/APAP 10-325 MG TABLET ONE (04:02)
[2022-04-26] MEDS ORDERED: CLINDAMYCIN HCL 300 MG CAPSULE ONE (04:02)
[2022-04-26] MEDS ORDERED: HYDR-4209 PO (04:02)
[2022-04-26] MEDS ORDERED: CLIN300C12 PO (04:02)
== END 2022-04-26 04:37 | disposition home or self-care (01) ==
LOC: ER 03:42
DX: L97.319 Non-pressure chronic ulcer of right ankle with unspecified severity (principal); L08.9 Local infection of the skin and subcutaneous tissue, unspecified; I73.9 Peripheral vascular disease, unspecified; E78.5 Hyperlipidemia, unspecified; I25.2 Old myocardial infarction; Z86.73 Personal history of transient ischemic attack (TIA), and cerebral infarction without residual deficits; Z83.3 Family history of diabetes mellitus; Z82.49 Family history of ischemic heart disease and other diseases of the circulatory system; Z72.0 Tobacco use
CPT/HCPCS: A4663

== ENCOUNTER 2022-07-07 02:33 | Emergency (ER) | payer OTHER ==
[~2022-07-07] VITALS: Ht 188 cm; Wt 104.3 kg
[~2022-07-07 02:33] MED LIST changes: +CLIN300C12 PO
--- NOTE | 2022-07-07 03:00 | NUR ---
PT AMB TO RM 2A WITH PAINFUL WOUND ON RT LOWER EXT.
--- NOTE | 2022-07-07 03:10 | NUR ---
AT BEDSIDE FOR EVAL.
[2022-07-07] MEDS ORDERED: KETOROLAC TROMETHAMINE 15 MG INJ IM ONE (03:15)
[2022-07-07] MEDS ORDERED: KETOROLAC TROMETHAMINE 15 MG INJ ONE (03:15)
--- NOTE | 2022-07-07 03:27 | NUR ---
RADIOLOGY AT BEDSIDE DOING RT ANKLE X RAY.
--- NOTE | 2022-07-07 04:30 | NUR ---
PT WAS A,A AND O X 4 WITH RT ANKLE PAIN 4. PT GIVEN HIS X RAY DISK. Patient discharged to home in stable condition. Written and verbal after care instructions given. Patient verbalizes understanding of instructions. Stressed follow up or return to ER for worsening s/s. PT AMB OUT WITH A LIMP.
[2022-07-07 04:36] VITALS: BP 137/69
== END 2022-07-07 04:30 | disposition home or self-care (01) ==
LOC: ER 02:39
DX: M25.571 Pain in right ankle and joints of right foot (principal); L97.319 Non-pressure chronic ulcer of right ankle with unspecified severity; I25.2 Old myocardial infarction; I50.9 Heart failure, unspecified; J44.9 Chronic obstructive pulmonary disease, unspecified; N18.9 Chronic kidney disease, unspecified; E78.5 Hyperlipidemia, unspecified; F17.210 Nicotine dependence, cigarettes, uncomplicated; Z79.82 Long term (current) use of aspirin; Z79.899 Other long term (current) drug therapy
CPT/HCPCS: 99283; 73610; 96372; J1885; A4663